=== PATIENT | male | born 1970 | race Caucasian/White ===

== ENCOUNTER 2022-09-04 14:22 | Observation (INO) | payer OTHER ==
[2022-09-04 14:45] VITALS: RESP 18
[2022-09-04 16:18] LABS: BASO % 1.4 % (0-2.0); EOS % 7.2 % (0-4.5); HEMATOCRIT 31.3 % (35.4-49); HEMOGLOBIN 9.7 GM/dL (11.7-16.9); LYMPH % 10.6 % (8-40); MCH 26.9 pg (25.7-33.7); MEAN CELL VOLUME 86.8 fl (80-96); MEAN PLT VOLUME 7.1 fl (7.5-11.1); MONO % 5.3 % (3.8-10.2); NEUT % 75.5 % (42.8-82.8); PLATELET COUNT 500 10^3/uL (134-434); RDW 18.5 % (11.9-15.9); WHITE BLOOD COUNT 11.9 K/mm3 (4.0-10.0)
[2022-09-04 16:25] LABS: INR 1.18 (0.83-1.09); PROTHROMBIN TIME (PATIENT) 13.6 SEC (9.7-13.0)
[2022-09-04 16:27] LABS: ACTIVATED PTT 31.9 SECONDS (25.2-36.5)
[2022-09-04 16:42] LABS: CHLORIDE 101 mmol/L (98-107); SODIUM 138 mmol/L (136-145)
[2022-09-04 16:44] LABS: ALBUMIN 2.8 g/dl (3.4-5.0); ANION GAP 10 MMOL/L (8-16); CALCIUM 9.5 mg/dL (8.5-10.1); CO2 27 mmol/L (21-32)
[2022-09-04 16:45] LABS: BLOOD UREA NITROGEN 55.6 mg/dL (7-18); GLUCOSE,RANDOM 188 mg/dL (74-106); MAGNESIUM 2.1 mg/dL (1.8-2.4)
[2022-09-04 16:47] LABS: PHOSPHOROUS 3.7 mg/dL (2.5-4.9); SGOT/AST 9 U/L (15-37); SGPT/ALT 16 U/L (13-61)
[2022-09-04 16:49] LABS: BILIRUBIN,TOTAL 0.5 mg/dL (0.2-1); TOT PROT 6.2 g/dl (6.4-8.2)
[2022-09-04 16:50] LABS: ALK PHOS 111 U/L (45-117)
[2022-09-04 17:11] LABS: CREATININE 8.7 mg/dL (0.55-1.3)
[2022-09-04] MEDS ORDERED: AMOX TR/POT CLAV 500MG/125MG TABLETS (FP) PO ONE (18:24)
[2022-09-04] MEDS ORDERED: AMOX TR/POT CLAV 500MG/125MG TABLETS (FP) ONE (19:02)
[2022-09-04] MEDS: INSULIN SLIDING SCALE (NOVOLOG) 1 VIAL SQ SCH (23:38)
[2022-09-05 03:48] VITALS: BMI 29.1
[2022-09-05] MEDS: INSULIN SLIDING SCALE (NOVOLOG) 1 VIAL SQ SCH ×3 (06:38→16:50)
[2022-09-05] MEDS ORDERED: ALBUTEROL SO4 2.5/IPRATROPIUM 0.5 INH SOL 3 ML VIAL.NEB. NEB PRN (07:13)
[2022-09-05] MEDS ORDERED: oxyCODONE HCL 5 MG TABLET PO PRN (07:13)
[2022-09-05] MEDS ORDERED: LIDOCAINE HCL 5% TOP OINTMENT 50 GM TUBE TP PRN (07:56)
[2022-09-05] MEDS ORDERED: AMOX TR/POT CLAV 500MG/125MG TABLETS (FP) PO SCH (09:00)
[2022-09-05] MEDS: CALCIUM ACETATE 667 MG CAPSULE (FP) PO SCH ×3 (09:26→17:52)
[2022-09-05] MEDS ORDERED: CALCITRIOL 0.25 MCG CAPSULE (FP) PO SCH (10:00)
[2022-09-05] MEDS ORDERED: amLODIPine BESYLATE 5 MG TABLET (FP) PO SCH (10:00)
[2022-09-05] MEDS ORDERED: CARVEDILOL 25 MG TABLET (FP) PO SCH (10:00)
[2022-09-05] MEDS ORDERED: ASPIRIN COATED 81 MG TABLET.EC PO SCH (10:00)
[2022-09-05] MEDS ORDERED: MUPIROCIN 2% TOPICAL OINTMENT 22 GM TUBE TP SCH (10:00)
[2022-09-05 11:28] LABS: EOS % 9.3 % (0-4.5); HEMATOCRIT 27.8 % (35.4-49); HEMOGLOBIN 8.9 GM/dL (11.7-16.9); LYMPH % 15.3 % (8-40); MCH 27.6 pg (25.7-33.7); MCHC 32.1 g/dl (32.0-35.9); MEAN CELL VOLUME 86.2 fl (80-96); MONO % 6.6 % (3.8-10.2); NEUT % 67.8 % (42.8-82.8); PLATELET COUNT 454 10^3/uL (134-434); RBC 3.23 M/mm3 (4.00-5.60); RDW 18.9 % (11.9-15.9); WHITE BLOOD COUNT 10.4 K/mm3 (4.0-10.0)
[2022-09-05 11:47] LABS: CHLORIDE 104 mmol/L (98-107); SODIUM 140 mmol/L (136-145)
[2022-09-05 11:51] LABS: ANION GAP 11 MMOL/L (8-16); BLOOD UREA NITROGEN 60.4 mg/dL (7-18); CO2 25 mmol/L (21-32); GLUCOSE,RANDOM 123 mg/dL (74-106)
[2022-09-05 11:54] LABS: PHOSPHOROUS 4.1 mg/dL (2.5-4.9)
[2022-09-05 11:56] LABS: CREATININE 9.9 mg/dL (0.55-1.3)
[2022-09-05] MEDS ORDERED: AMOX TR/POT CLAV 500MG/125MG TABLETS (FP) PO ONE (12:00)
[2022-09-05 12:51] LABS: EPI CELLS 5 /uL (0-25.1); HYALINE CASTS 0 /uL (0-3.1); PH,URINE 7.5 (5.0-8.0); URINE APPEARANCE CLEAR; URINE BACTERIA 10 /uL (0-1359); URINE BILIRUBIN NEGATIVE (NEGATIVE); URINE COLOR YELLOW; URINE GLUCOSE (UA) TRACE (NEGATIVE); URINE KETONE NEGATIVE (NEGATIVE); URINE LEUK ESTERASE NEGATIVE (NEGATIVE); URINE NITRITE NEGATIVE (NEGATIVE); URINE PROTEIN 4+ (NEGATIVE); URINE RBC 45 /uL (0-23.9); URINE UROBILINOGEN 0.2 mg/dL (0.2-1.0); URINE WBC 11 /uL (0-25.8)
[2022-09-05] MEDS ORDERED: HEPARIN NA (PORCINE) 5,000 UNITS/ML 1ML VIAL SQ SCH (14:00)
[2022-09-05 16:37] VITALS: BP 179/74; PULSE 87; TEMP 98.1
[2022-09-05] MEDS ORDERED: ATORVASTATIN CA 40 MG TABLET (FP) PO SCH (22:00)
== END 2022-09-05 18:11 ==
LOC: JER 14:22 → INTOOBSV 18:04 → UNDOADMOB 18:04 → JERBED 18:04 → J5S 23:45 → JERBED 09-05 10:43 → J5S 09-05 10:43
PROVIDERS: ADMIT Internal Medicine; ATTEND Family Medicine
PROC: 3E023GC Introduction of Other Therapeutic Substance into Muscle, Percutaneous Approach (ICD-10-PCS; principal; 2022-09-05)
DX: I13.11 Hypertensive heart and chronic kidney disease without heart failure, with stage 5 chronic kidney disease, or end stage renal disease (principal); N18.6 End stage renal disease; Z89.512 Acquired absence of left leg below knee; E11.22 Type 2 diabetes mellitus with diabetic chronic kidney disease; A52.16 Charcot's arthropathy (tabetic); Z99.2 Dependence on renal dialysis; D64.9 Anemia, unspecified
CPT/HCPCS: 0241U-QW; 36415; 76937; 80048; 80053; 81003; 82330; 82962; 83735; 84100; 85025; 85610; 85730; 87086; 93005; 93010; 96372; 99285-25; G0378; J1644

== ENCOUNTER 2022-10-02 10:43 | Emergency (ER) | payer OTHER ==
[2022-10-02 11:13] VITALS: TEMP 98.2; BMI 28.7
[2022-10-02] MEDS ORDERED: LACTATED RINGERS SOLUTION 1000 ML INFUS.BAG IV ONE (12:25)
[2022-10-02 13:50] VITALS: BP 130/65; PULSE 89; RESP 20
[2022-10-02 14:32] LABS: ALBUMIN 3.2 g/dl (3.4-5.0); BLOOD UREA NITROGEN 53.9 mg/dL (7-18); CALCIUM 9.5 mg/dL (8.5-10.1); CO2 20 mmol/L (21-32); GLUCOSE,RANDOM 183 mg/dL (74-106)
[2022-10-02 14:35] LABS: ANION GAP 20 MMOL/L (8-16); CHLORIDE 97 mmol/L (98-107); SODIUM 136 mmol/L (136-145)
[2022-10-02 14:36] LABS: TOT PROT 8.1 g/dl (6.4-8.2)
[2022-10-02 14:37] LABS: BILIRUBIN,TOTAL 0.8 mg/dL (0.2-1)
[2022-10-02 14:39] LABS: ALK PHOS 122 U/L (45-117); MAGNESIUM 1.8 mg/dL (1.8-2.4)
[2022-10-02 14:41] LABS: SGOT/AST 72 U/L (15-37); TOTAL IRON BINDING CAPACITY 224 ug/dL (250-450)
[2022-10-02 14:43] LABS: IRON SERUM 84 ug/dL (50-175)
[2022-10-02 14:58] LABS: CREATININE 10.9 mg/dL (0.55-1.3); SGPT/ALT 26 U/L (13-61)
[2022-10-02] MEDS ORDERED: SODIUM ZIRCONIUM CYCLOSILICATE (LOKELMA) 5 GM PACKET PO SCH (15:00)
[2022-10-02 15:13] LABS: BASO % 0.7 % (0-2.0); EOS % 3.4 % (0-4.5); HEMATOCRIT 38.3 % (35.4-49); HEMOGLOBIN 11.7 GM/dL (11.7-16.9); LYMPH % 11.1 % (8-40); MCH 26.5 pg (25.7-33.7); MCHC 30.6 g/dl (32.0-35.9); MEAN CELL VOLUME 86.3 fl (80-96); MEAN PLT VOLUME 6.6 fl (7.5-11.1); MONO % 6.2 % (3.8-10.2); NEUT % 78.6 % (42.8-82.8); PLATELET COUNT 511 10^3/uL (134-434); RBC 4.43 M/mm3 (4.00-5.60); WHITE BLOOD COUNT 13.9 K/mm3 (4.0-10.0)
== END 2022-10-02 15:42 | disposition home or self-care (01) ==
LOC: JER 10:43
DX: E87.5 Hyperkalemia (principal); E86.0 Dehydration; R19.7 Diarrhea, unspecified
CPT/HCPCS: 36415; 80053; 82728; 82746; 82962; 83036; 83540; 83550; 83735; 85025; 87045; 87046; 87186; 87205; 87493; 93005; 93010; 99284-25